=== PATIENT | female | born 1945 | race Caucasian/White ===

== ENCOUNTER 2021-11-28 15:18 | Inpatient (IN) | payer MEDICARE ==
[~2021-11-28] VITALS: Ht 154.9 cm; Wt 74.4 kg
[2021-11-28 19:30] VITALS: BP 131/74
[2021-11-28 21:31] VITALS: BP 134/78
[2021-11-28] MEDS: ACETAMINOPHEN 325 MG TABLET PO PRN (21:36)
[2021-11-28] MEDS: SENNA 187 MG TABLET PO SCH (21:37)
[2021-11-28] MEDS: ATORVASTATIN CALCIUM 20 MG TABLET PO SCH (21:37)
[2021-11-28] MEDS: METOPROLOL TARTRATE 50 MG TABLET PO SCH (21:37)
[2021-11-28] MEDS: DOCUSATE SODIUM 100 MG CAPSULE PO SCH (21:37)
[2021-11-28] MEDS: ETHYL ALCOHOL 62% ANTISEPTIC NASAL SANITIZER 0.6 ML AMPUL NASAL SCH (21:37)
[2021-11-28] MEDS: MELATONIN 3 MG TABLET PO PRN (21:46)
[2021-11-29] MEDS ORDERED: PNEUMOCOCCAL VACCINE POLYVALENT 0.5 ML VIAL [PPSV23] IM. ONE (00:45)
[2021-11-29 06:25] LABS: EOSINOPHILS % (AUTO) 5.7 % (1.0-6.0); HEMATOCRIT 29.1 % (36-46); HEMOGLOBIN 9.8 g/dL (12.0-16.0); LYMPHOCYTES # (AUTO) 2.1 K/uL (1.0-4.8); LYMPHOCYTES % (AUTO) 21.9 % (22.0-44.0); MEAN CORPUSCULAR HEMOGLOBIN 33.4 pg (26.0-34.0); MEAN CORPUSCULAR HGB CONC 33.9 G/dL (31.0-37.0); MEAN CORPUSCULAR VOLUME 99 fL (80-100); MONOCYTES # (AUTO) 1.1 K/uL (0.1-1.0); MONOCYTES % (AUTO) 11.7 % (2.0-9.0); NEUTROPHILS # (AUTO) 5.8 K/uL (1.8-7.7); NEUTROPHILS % (AUTO) 59.7 % (40.0-70.0); PLATELET COUNT (AUTO) 351 K/uL (150-450); RED BLOOD CELL COUNT(AUTO) 2.94 MIL/uL (4.00-5.20); RED CELL DISTRIBUTION WIDTH 13.8 % (11.5-14.5)
[2021-11-29] MEDS: LEVOTHYROXINE SODIUM 50 MCG TABLET PO SCH (06:26)
[2021-11-29 06:27] VITALS: BP 137/84
[2021-11-29 06:50] LABS: ALBUMIN 2.8 g/dL (3.4-5.0); BILIRUBIN,TOTAL 0.7 mg/dL (0.1-1.0); CALCIUM, TOTAL 8.6 mg/dL (8.8-10.5); CREATININE 1.03 mg/dL (0.60-1.30); POTASSIUM 4.7 mmol/L (3.5-5.1); TOTAL PROTEIN, SERUM 6.4 g/dL (6.4-8.2)
[2021-11-29 08:16] VITALS: BP 138/81
[2021-11-29] MEDS: DOCUSATE SODIUM 100 MG CAPSULE PO SCH ×2 (08:19→20:07)
[2021-11-29] MEDS: ASPIRIN 81 MG CHEWABLE TABLET PO SCH (08:19)
[2021-11-29] MEDS: FLUoxetine HCL 20 MG CAPSULE PO SCH (08:19)
[2021-11-29] MEDS: METOPROLOL TARTRATE 50 MG TABLET PO SCH ×2 (08:19→20:07)
[2021-11-29] MEDS: ETHYL ALCOHOL 62% ANTISEPTIC NASAL SANITIZER 0.6 ML AMPUL NASAL SCH ×2 (08:20→20:06)
[2021-11-29] MEDS: THIAMINE 100 MG TABLET PO SCH (08:20)
[2021-11-29] MEDS: FOLIC ACID 1 MG TABLET PO SCH (08:20)
[2021-11-29] MEDS: ACETAMINOPHEN 325 MG TABLET PO PRN (13:40)
[2021-11-29 16:05] VITALS: BP 131/78
[2021-11-29] MEDS: HEPARIN SODIUM,PORCINE 5,000 UNITS/ML VIAL SQ SCH ×2 (16:29→20:08)
[2021-11-29 20:00] VITALS: BP 138/80
[2021-11-29] MEDS: SENNA 187 MG TABLET PO SCH (20:07)
[2021-11-29] MEDS: ATORVASTATIN CALCIUM 20 MG TABLET PO SCH (20:07)
[2021-11-29] MEDS: MELATONIN 3 MG TABLET PO PRN (20:22)
[2021-11-30 03:54] VITALS: BP 140/84
[2021-11-30] MEDS: ACETAMINOPHEN 325 MG TABLET PO PRN ×3 (03:54→21:14)
[2021-11-30] MEDS: LEVOTHYROXINE SODIUM 50 MCG TABLET PO SCH (06:37)
[2021-11-30] MEDS: ETHYL ALCOHOL 62% ANTISEPTIC NASAL SANITIZER 0.6 ML AMPUL NASAL SCH ×2 (08:46→21:09)
[2021-11-30] MEDS: FOLIC ACID 1 MG TABLET PO SCH (08:47)
[2021-11-30] MEDS: ASPIRIN 81 MG CHEWABLE TABLET PO SCH (08:47)
[2021-11-30] MEDS: DOCUSATE SODIUM 100 MG CAPSULE PO SCH ×2 (08:47→21:09)
[2021-11-30] MEDS: METOPROLOL TARTRATE 50 MG TABLET PO SCH ×2 (08:47→21:09)
[2021-11-30] MEDS: THIAMINE 100 MG TABLET PO SCH (08:48)
[2021-11-30] MEDS: HEPARIN SODIUM,PORCINE 5,000 UNITS/ML VIAL SQ SCH ×3 (08:48→21:10)
[2021-11-30] MEDS: FLUoxetine HCL 20 MG CAPSULE PO SCH (08:48)
[2021-11-30 09:16] VITALS: BP 131/81
[2021-11-30 15:27] VITALS: BP 135/92
[2021-11-30] MEDS: ATORVASTATIN CALCIUM 20 MG TABLET PO SCH (21:09)
[2021-11-30] MEDS: SENNA 187 MG TABLET PO SCH (21:09)
[2021-11-30 21:14] VITALS: BP 149/79
[2021-11-30] MEDS: MELATONIN 3 MG TABLET PO PRN (21:14)
[2021-11-30 21:31] LABS: APPEARANCE,URINE CLEAR (CLEAR); BILIRUBIN,URINE NEGATIVE (NEGATIVE); GLUCOSE, URINE (UA) NEGATIVE (NEGATIVE); KETONES,URINE NEGATIVE (NEGATIVE); LEUKOCYTE ESTERASE ,URINE NEGATIVE (NEGATIVE); NITRATE,URINE NEGATIVE (NEGATIVE); OCCULT BLOOD,URINE NEGATIVE (NEGATIVE); PROTEIN,URINE NEGATIVE (NEGATIVE); SPECIFIC GRAVITIY, URINE 1.008 (1.003-1.030); UROBILINOGEN,URINE <=1.0 mg/dL (<=1.0)
[2021-11-30 21:47] LABS: BACTERIA,URINE None Seen /HPF (None Seen); RBC,URINE None Seen /HPF (0-2); SQUAMOUS EPITHELIAL CELL,UR Rare /LPF (None Seen); WBC,URINE None Seen /HPF (0-5)
[2021-12-01] MEDS: LEVOTHYROXINE SODIUM 50 MCG TABLET PO SCH (06:01)
[2021-12-01] MEDS: ASPIRIN 81 MG CHEWABLE TABLET PO SCH (07:36)
[2021-12-01] MEDS: ETHYL ALCOHOL 62% ANTISEPTIC NASAL SANITIZER 0.6 ML AMPUL NASAL SCH ×2 (07:36→21:28)
[2021-12-01] MEDS: THIAMINE 100 MG TABLET PO SCH (07:38)
[2021-12-01] MEDS: DOCUSATE SODIUM 100 MG CAPSULE PO SCH ×2 (07:38→21:28)
[2021-12-01] MEDS: HEPARIN SODIUM,PORCINE 5,000 UNITS/ML VIAL SQ SCH ×3 (07:38→21:29)
[2021-12-01] MEDS: METOPROLOL TARTRATE 50 MG TABLET PO SCH ×2 (07:39→21:28)
[2021-12-01] MEDS: FLUoxetine HCL 20 MG CAPSULE PO SCH (07:39)
[2021-12-01] MEDS: FOLIC ACID 1 MG TABLET PO SCH (07:39)
[2021-12-01] MEDS: ACETAMINOPHEN 325 MG TABLET PO PRN ×2 (07:40→16:10)
[2021-12-01 10:29] VITALS: BP 155/99
[2021-12-01 16:10] VITALS: BP 141/89
[2021-12-01 21:25] VITALS: BP 130/74
[2021-12-01] MEDS: SENNA 187 MG TABLET PO SCH (21:28)
[2021-12-01] MEDS: ATORVASTATIN CALCIUM 20 MG TABLET PO SCH (21:29)
[2021-12-01] MEDS: MELATONIN 3 MG TABLET PO PRN (21:38)
[2021-12-02] MEDS: LEVOTHYROXINE SODIUM 50 MCG TABLET PO SCH (05:15)
[2021-12-02 05:17] VITALS: BP 128/71
[2021-12-02] MEDS: ACETAMINOPHEN 325 MG TABLET PO PRN ×3 (05:17→20:37)
[2021-12-02 08:00] VITALS: BP 151/105
[2021-12-02] MEDS: ETHYL ALCOHOL 62% ANTISEPTIC NASAL SANITIZER 0.6 ML AMPUL NASAL SCH ×2 (08:34→20:36)
[2021-12-02] MEDS: HEPARIN SODIUM,PORCINE 5,000 UNITS/ML VIAL SQ SCH ×3 (08:35→20:39)
[2021-12-02] MEDS: FLUoxetine HCL 20 MG CAPSULE PO SCH (08:35)
[2021-12-02] MEDS: DOCUSATE SODIUM 100 MG CAPSULE PO SCH ×2 (08:35→20:36)
[2021-12-02] MEDS: ASPIRIN 81 MG CHEWABLE TABLET PO SCH (08:35)
[2021-12-02] MEDS: METOPROLOL TARTRATE 50 MG TABLET PO SCH ×2 (08:35→20:38)
[2021-12-02] MEDS: FOLIC ACID 1 MG TABLET PO SCH (08:35)
[2021-12-02] MEDS: THIAMINE 100 MG TABLET PO SCH (08:35)
[2021-12-02 10:51] VITALS: BP 146/87
[2021-12-02] MEDS: BACLOFEN 10 MG TABLET PO SCH ×2 (15:58→20:39)
[2021-12-02 16:05] VITALS: BP 137/84
[2021-12-02 20:35] VITALS: BP 140/81
[2021-12-02] MEDS: MELATONIN 3 MG TABLET PO PRN (20:36)
[2021-12-02] MEDS: SENNA 187 MG TABLET PO SCH (20:38)
[2021-12-02] MEDS: ATORVASTATIN CALCIUM 20 MG TABLET PO SCH (20:38)
[2021-12-03 02:34] VITALS: BP 126/84
[2021-12-03] MEDS: ACETAMINOPHEN 325 MG TABLET PO PRN (02:34)
[2021-12-03] MEDS: LEVOTHYROXINE SODIUM 50 MCG TABLET PO SCH (06:15)
[2021-12-03 08:30] VITALS: BP 143/82
[2021-12-03] MEDS: HEPARIN SODIUM,PORCINE 5,000 UNITS/ML VIAL SQ SCH ×3 (08:41→21:56)
[2021-12-03] MEDS: ASPIRIN 81 MG CHEWABLE TABLET PO SCH (08:42)
[2021-12-03] MEDS: BACLOFEN 10 MG TABLET PO SCH ×3 (08:42→21:48)
[2021-12-03] MEDS: DOCUSATE SODIUM 100 MG CAPSULE PO SCH ×2 (08:42→21:47)
[2021-12-03] MEDS: FOLIC ACID 1 MG TABLET PO SCH (08:42)
[2021-12-03] MEDS: METOPROLOL TARTRATE 50 MG TABLET PO SCH ×2 (08:42→21:47)
[2021-12-03] MEDS: ETHYL ALCOHOL 62% ANTISEPTIC NASAL SANITIZER 0.6 ML AMPUL NASAL SCH ×2 (08:43→21:47)
[2021-12-03] MEDS: FLUoxetine HCL 20 MG CAPSULE PO SCH (08:46)
[2021-12-03] MEDS: THIAMINE 100 MG TABLET PO SCH (08:46)
[2021-12-03 16:22] VITALS: BP 141/75
[2021-12-03 21:30] VITALS: BP 149/101
[2021-12-03] MEDS: SENNA 187 MG TABLET PO SCH (21:47)
[2021-12-03] MEDS: ATORVASTATIN CALCIUM 20 MG TABLET PO SCH (21:47)
[2021-12-03] MEDS: TAMSULOSIN HCL 0.4 MG CAPSULE PO SCH (21:48)
[2021-12-03] MEDS: MELATONIN 3 MG TABLET PO PRN (21:48)
[2021-12-04] MEDS: LEVOTHYROXINE SODIUM 50 MCG TABLET PO SCH (05:43)
[2021-12-04 06:06] VITALS: BP 153/89
[2021-12-04] MEDS: ACETAMINOPHEN 325 MG TABLET PO PRN ×3 (06:41→22:31)
[2021-12-04] MEDS: DOCUSATE SODIUM 100 MG CAPSULE PO SCH ×2 (08:30→20:15)
[2021-12-04] MEDS: THIAMINE 100 MG TABLET PO SCH (08:30)
[2021-12-04] MEDS: ASPIRIN 81 MG CHEWABLE TABLET PO SCH (08:30)
[2021-12-04] MEDS: FLUoxetine HCL 20 MG CAPSULE PO SCH (08:30)
[2021-12-04] MEDS: METOPROLOL TARTRATE 50 MG TABLET PO SCH ×2 (08:30→20:15)
[2021-12-04] MEDS: BACLOFEN 10 MG TABLET PO SCH ×3 (08:31→20:16)
[2021-12-04] MEDS: FOLIC ACID 1 MG TABLET PO SCH (08:31)
[2021-12-04] MEDS: HEPARIN SODIUM,PORCINE 5,000 UNITS/ML VIAL SQ SCH ×3 (08:31→20:15)
[2021-12-04] MEDS: ETHYL ALCOHOL 62% ANTISEPTIC NASAL SANITIZER 0.6 ML AMPUL NASAL SCH ×2 (08:48→20:16)
[2021-12-04 09:00] VITALS: BP 144/108
[2021-12-04 11:20] VITALS: BP 139/79
[2021-12-04 16:05] VITALS: BP 133/78
[2021-12-04 20:05] VITALS: BP 140/89
[2021-12-04] MEDS: SENNA 187 MG TABLET PO SCH (20:16)
[2021-12-04] MEDS: TAMSULOSIN HCL 0.4 MG CAPSULE PO SCH (20:16)
[2021-12-04] MEDS: ATORVASTATIN CALCIUM 20 MG TABLET PO SCH (20:16)
[2021-12-04] MEDS: MELATONIN 3 MG TABLET PO PRN (20:16)
[2021-12-04 23:31] VITALS: BP 140/93
[2021-12-05] MEDS: LEVOTHYROXINE SODIUM 50 MCG TABLET PO SCH (06:03)
[2021-12-05] MEDS: ACETAMINOPHEN 325 MG TABLET PO PRN ×2 (06:34→11:13)
[2021-12-05] MEDS: ETHYL ALCOHOL 62% ANTISEPTIC NASAL SANITIZER 0.6 ML AMPUL NASAL SCH ×2 (08:06→19:54)
[2021-12-05] MEDS: DOCUSATE SODIUM 100 MG CAPSULE PO SCH ×2 (08:07→19:55)
[2021-12-05] MEDS: FOLIC ACID 1 MG TABLET PO SCH (08:07)
[2021-12-05] MEDS: ASPIRIN 81 MG CHEWABLE TABLET PO SCH (08:07)
[2021-12-05] MEDS: METOPROLOL TARTRATE 50 MG TABLET PO SCH ×2 (08:08→19:56)
[2021-12-05] MEDS: BACLOFEN 10 MG TABLET PO SCH ×3 (08:08→19:57)
[2021-12-05] MEDS: FLUoxetine HCL 20 MG CAPSULE PO SCH (08:09)
[2021-12-05] MEDS: HEPARIN SODIUM,PORCINE 5,000 UNITS/ML VIAL SQ SCH ×2 (08:09→16:11)
[2021-12-05] MEDS: MULTIVITAMINS WITH MINERALS, THERAPEUTIC TABLET PO SCH (08:09)
[2021-12-05] MEDS: AmLODIPine BESYLATE 2.5 MG TABLET PO SCH (08:09)
[2021-12-05] MEDS: THIAMINE 100 MG TABLET PO SCH (08:09)
[2021-12-05 09:00] VITALS: BP 149/93
[2021-12-05 16:30] VITALS: BP 134/85
[2021-12-05 19:55] VITALS: BP 128/84
[2021-12-05] MEDS: TAMSULOSIN HCL 0.4 MG CAPSULE PO SCH (19:55)
[2021-12-05] MEDS: ATORVASTATIN CALCIUM 20 MG TABLET PO SCH (19:56)
[2021-12-05] MEDS: MIRTAZAPINE 15 MG TABLET PO SCH (19:56)
[2021-12-05] MEDS: APIXABAN 5 MG TABLET PO SCH (19:56)
[2021-12-05] MEDS: SENNA 187 MG TABLET PO SCH (19:56)
[2021-12-06 05:51] VITALS: BP 148/83
[2021-12-06] MEDS: LEVOTHYROXINE SODIUM 50 MCG TABLET PO SCH (06:05)
[2021-12-06 07:15] LABS: CREATININE 1.09 mg/dL (0.60-1.30); POTASSIUM 4.2 mmol/L (3.5-5.1)
[2021-12-06] MEDS: DOCUSATE SODIUM 100 MG CAPSULE PO SCH ×2 (09:15→20:46)
[2021-12-06] MEDS: ASPIRIN 81 MG CHEWABLE TABLET PO SCH (09:15)
[2021-12-06] MEDS: ETHYL ALCOHOL 62% ANTISEPTIC NASAL SANITIZER 0.6 ML AMPUL NASAL SCH ×2 (09:15→20:47)
[2021-12-06] MEDS: APIXABAN 5 MG TABLET PO SCH ×2 (09:16→20:46)
[2021-12-06] MEDS: BACLOFEN 10 MG TABLET PO SCH ×3 (09:16→20:47)
[2021-12-06] MEDS: FOLIC ACID 1 MG TABLET PO SCH (09:16)
[2021-12-06] MEDS: THIAMINE 100 MG TABLET PO SCH (09:17)
[2021-12-06] MEDS: MULTIVITAMINS WITH MINERALS, THERAPEUTIC TABLET PO SCH (09:17)
[2021-12-06] MEDS: AmLODIPine BESYLATE 2.5 MG TABLET PO SCH (09:17)
[2021-12-06] MEDS: METOPROLOL TARTRATE 50 MG TABLET PO SCH ×2 (09:17→20:46)
[2021-12-06] MEDS: FLUoxetine HCL 20 MG CAPSULE PO SCH (09:17)
[2021-12-06 11:02] VITALS: BP 152/92
[2021-12-06 16:02] VITALS: BP 129/71
[2021-12-06] MEDS: ACETAMINOPHEN 325 MG TABLET PO PRN (17:55)
[2021-12-06 20:30] VITALS: BP 133/70
[2021-12-06] MEDS: MIRTAZAPINE 15 MG TABLET PO SCH (20:46)
[2021-12-06] MEDS: SENNA 187 MG TABLET PO SCH (20:46)
[2021-12-06] MEDS: TAMSULOSIN HCL 0.4 MG CAPSULE PO SCH (20:46)
[2021-12-06] MEDS: ATORVASTATIN CALCIUM 20 MG TABLET PO SCH (20:49)
[2021-12-07] MEDS: LEVOTHYROXINE SODIUM 50 MCG TABLET PO SCH (05:44)
[2021-12-07 06:06] VITALS: BP 134/95
[2021-12-07 08:05] LABS: APPEARANCE,URINE CLEAR (CLEAR); BILIRUBIN,URINE NEGATIVE (NEGATIVE); GLUCOSE, URINE (UA) NEGATIVE (NEGATIVE); KETONES,URINE NEGATIVE (NEGATIVE); LEUKOCYTE ESTERASE ,URINE NEGATIVE (NEGATIVE); NITRATE,URINE NEGATIVE (NEGATIVE); OCCULT BLOOD,URINE NEGATIVE (NEGATIVE); PH,URINE 5.5 (5.0-8.0); PROTEIN,URINE NEGATIVE (NEGATIVE); SPECIFIC GRAVITIY, URINE 1.006 (1.003-1.030); UROBILINOGEN,URINE <=1.0 mg/dL (<=1.0)
[2021-12-07 08:10] LABS: BACTERIA,URINE None Seen /HPF (None Seen); RBC,URINE None Seen /HPF (0-2); SQUAMOUS EPITHELIAL CELL,UR Few /LPF (None Seen); WBC,URINE None Seen /HPF (0-5)
[2021-12-07] MEDS: ETHYL ALCOHOL 62% ANTISEPTIC NASAL SANITIZER 0.6 ML AMPUL NASAL SCH ×2 (09:07→20:47)
[2021-12-07] MEDS: ASPIRIN 81 MG CHEWABLE TABLET PO SCH (09:08)
[2021-12-07] MEDS: AmLODIPine BESYLATE 5 MG TABLET PO SCH (09:08)
[2021-12-07] MEDS: DOCUSATE SODIUM 250 MG CAPSULE PO SCH ×2 (09:08→20:47)
[2021-12-07] MEDS: APIXABAN 5 MG TABLET PO SCH ×2 (09:08→20:48)
[2021-12-07] MEDS: FOLIC ACID 1 MG TABLET PO SCH (09:09)
[2021-12-07] MEDS: BACLOFEN 10 MG TABLET PO SCH ×3 (09:09→20:48)
[2021-12-07] MEDS: MULTIVITAMINS WITH MINERALS, THERAPEUTIC TABLET PO SCH (09:09)
[2021-12-07] MEDS: METOPROLOL TARTRATE 50 MG TABLET PO SCH ×2 (09:09→20:48)
[2021-12-07] MEDS: FLUoxetine HCL 20 MG CAPSULE PO SCH (09:09)
[2021-12-07] MEDS: THIAMINE 100 MG TABLET PO SCH (09:10)
[2021-12-07 09:37] VITALS: BP 121/65
[2021-12-07] MEDS: ACETAMINOPHEN 325 MG TABLET PO PRN ×2 (12:20→18:05)
[2021-12-07 16:05] VITALS: BP 117/72
[2021-12-07] MEDS: SENNA 187 MG TABLET PO SCH (20:47)
[2021-12-07] MEDS: ATORVASTATIN CALCIUM 20 MG TABLET PO SCH (20:48)
[2021-12-07] MEDS: MIRTAZAPINE 15 MG TABLET PO SCH (20:49)
[2021-12-07] MEDS: TAMSULOSIN HCL 0.4 MG CAPSULE PO SCH (20:50)
[2021-12-08] MEDS: LEVOTHYROXINE SODIUM 50 MCG TABLET PO SCH (05:41)
[2021-12-08 05:45] VITALS: BP 101/54
[2021-12-08] MEDS: ASPIRIN 81 MG CHEWABLE TABLET PO SCH (08:16)
[2021-12-08] MEDS: ETHYL ALCOHOL 62% ANTISEPTIC NASAL SANITIZER 0.6 ML AMPUL NASAL SCH ×2 (08:16→20:33)
[2021-12-08] MEDS: APIXABAN 5 MG TABLET PO SCH ×2 (08:17→20:34)
[2021-12-08] MEDS: TAMSULOSIN HCL 0.4 MG CAPSULE PO SCH ×2 (08:18→20:34)
[2021-12-08] MEDS: FOLIC ACID 1 MG TABLET PO SCH (08:18)
[2021-12-08] MEDS: MULTIVITAMINS WITH MINERALS, THERAPEUTIC TABLET PO SCH (08:19)
[2021-12-08] MEDS: METOPROLOL TARTRATE 50 MG TABLET PO SCH ×2 (08:19→20:34)
[2021-12-08] MEDS: THIAMINE 100 MG TABLET PO SCH (08:19)
[2021-12-08] MEDS: FLUoxetine HCL 20 MG CAPSULE PO SCH (08:19)
[2021-12-08] MEDS: AmLODIPine BESYLATE 5 MG TABLET PO SCH (08:19)
[2021-12-08] MEDS: BACLOFEN 10 MG TABLET PO SCH ×3 (08:19→20:34)
[2021-12-08] MEDS: DOCUSATE SODIUM 250 MG CAPSULE PO SCH ×2 (08:20→20:33)
[2021-12-08 09:21] VITALS: BP 114/72
[2021-12-08] MEDS: ACETAMINOPHEN 325 MG TABLET PO PRN (12:05)
[2021-12-08 16:02] VITALS: BP 122/63
[2021-12-08] MEDS: ATORVASTATIN CALCIUM 20 MG TABLET PO SCH (20:34)
[2021-12-08] MEDS: MIRTAZAPINE 15 MG TABLET PO SCH (20:34)
[2021-12-08] MEDS: SENNA 187 MG TABLET PO SCH (20:35)
[2021-12-09 05:31] VITALS: BP 131/76
[2021-12-09] MEDS: LEVOTHYROXINE SODIUM 50 MCG TABLET PO SCH (05:36)
[2021-12-09 09:00] VITALS: BP 132/64
[2021-12-09] MEDS: ETHYL ALCOHOL 62% ANTISEPTIC NASAL SANITIZER 0.6 ML AMPUL NASAL SCH ×2 (09:05→20:13)
[2021-12-09] MEDS: APIXABAN 5 MG TABLET PO SCH ×2 (09:06→20:14)
[2021-12-09] MEDS: FOLIC ACID 1 MG TABLET PO SCH (09:06)
[2021-12-09] MEDS: FLUoxetine HCL 20 MG CAPSULE PO SCH (09:06)
[2021-12-09] MEDS: THIAMINE 100 MG TABLET PO SCH (09:06)
[2021-12-09] MEDS: BACLOFEN 10 MG TABLET PO SCH ×3 (09:06→20:14)
[2021-12-09] MEDS: AmLODIPine BESYLATE 5 MG TABLET PO SCH (09:07)
[2021-12-09] MEDS: TAMSULOSIN HCL 0.4 MG CAPSULE PO SCH ×2 (09:07→20:14)
[2021-12-09] MEDS: DOCUSATE SODIUM 250 MG CAPSULE PO SCH ×2 (09:07→20:13)
[2021-12-09] MEDS: MULTIVITAMINS WITH MINERALS, THERAPEUTIC TABLET PO SCH (09:07)
[2021-12-09] MEDS: METOPROLOL TARTRATE 50 MG TABLET PO SCH ×2 (09:07→20:50)
[2021-12-09] MEDS: ASPIRIN 81 MG CHEWABLE TABLET PO SCH (09:07)
[2021-12-09] MEDS: ACETAMINOPHEN 325 MG TABLET PO PRN ×2 (10:55→19:33)
[2021-12-09 16:03] VITALS: BP 112/65
[2021-12-09 20:10] VITALS: BP 99/66
[2021-12-09] MEDS: ATORVASTATIN CALCIUM 20 MG TABLET PO SCH (20:14)
[2021-12-09] MEDS: SENNA 187 MG TABLET PO SCH (20:14)
[2021-12-09] MEDS: MIRTAZAPINE 15 MG TABLET PO SCH (20:14)
[2021-12-09 20:50] VITALS: BP 123/68
[2021-12-10 01:30] VITALS: BP 113/76
[2021-12-10] MEDS: LEVOTHYROXINE SODIUM 50 MCG TABLET PO SCH (05:49)
[2021-12-10] MEDS: ASPIRIN 81 MG CHEWABLE TABLET PO SCH (08:29)
[2021-12-10] MEDS: DOCUSATE SODIUM 250 MG CAPSULE PO SCH ×2 (08:29→20:05)
[2021-12-10] MEDS: TAMSULOSIN HCL 0.4 MG CAPSULE PO SCH ×2 (08:29→20:06)
[2021-12-10] MEDS: APIXABAN 5 MG TABLET PO SCH ×2 (08:29→20:06)
[2021-12-10] MEDS: ETHYL ALCOHOL 62% ANTISEPTIC NASAL SANITIZER 0.6 ML AMPUL NASAL SCH ×2 (08:29→20:05)
[2021-12-10] MEDS: THIAMINE 100 MG TABLET PO SCH (08:30)
[2021-12-10] MEDS: METOPROLOL TARTRATE 50 MG TABLET PO SCH ×2 (08:30→20:06)
[2021-12-10] MEDS: BACLOFEN 10 MG TABLET PO SCH ×3 (08:30→20:06)
[2021-12-10] MEDS: FOLIC ACID 1 MG TABLET PO SCH (08:30)
[2021-12-10] MEDS: FLUoxetine HCL 20 MG CAPSULE PO SCH (08:31)
[2021-12-10] MEDS: AmLODIPine BESYLATE 5 MG TABLET PO SCH (08:31)
[2021-12-10] MEDS: MULTIVITAMINS WITH MINERALS, THERAPEUTIC TABLET PO SCH (08:31)
[2021-12-10 09:37] VITALS: BP 114/81
[2021-12-10 15:05] VITALS: BP 97/57
[2021-12-10 17:39] VITALS: BP 116/63
[2021-12-10 19:56] VITALS: BP 122/61
[2021-12-10] MEDS: ATORVASTATIN CALCIUM 20 MG TABLET PO SCH (20:06)
[2021-12-10] MEDS: MIRTAZAPINE 15 MG TABLET PO SCH (20:06)
[2021-12-10] MEDS: SENNA 187 MG TABLET PO SCH (20:10)
[2021-12-11 00:09] VITALS: BP 123/86
[2021-12-11] MEDS: LEVOTHYROXINE SODIUM 50 MCG TABLET PO SCH (05:51)
[2021-12-11] MEDS: APIXABAN 5 MG TABLET PO SCH ×2 (08:59→20:35)
[2021-12-11] MEDS: MULTIVITAMINS WITH MINERALS, THERAPEUTIC TABLET PO SCH (08:59)
[2021-12-11] MEDS: ETHYL ALCOHOL 62% ANTISEPTIC NASAL SANITIZER 0.6 ML AMPUL NASAL SCH ×2 (08:59→20:33)
[2021-12-11] MEDS: ASPIRIN 81 MG CHEWABLE TABLET PO SCH (08:59)
[2021-12-11] MEDS: THIAMINE 100 MG TABLET PO SCH (08:59)
[2021-12-11] MEDS: BACLOFEN 10 MG TABLET PO SCH ×3 (08:59→20:35)
[2021-12-11] MEDS: AmLODIPine BESYLATE 5 MG TABLET PO SCH (09:00)
[2021-12-11] MEDS: DOCUSATE SODIUM 250 MG CAPSULE PO SCH ×2 (09:00→20:44)
[2021-12-11] MEDS: FOLIC ACID 1 MG TABLET PO SCH (09:00)
[2021-12-11] MEDS: METOPROLOL TARTRATE 50 MG TABLET PO SCH ×2 (09:00→20:35)
[2021-12-11] MEDS: FLUoxetine HCL 20 MG CAPSULE PO SCH (09:00)
[2021-12-11] MEDS: TAMSULOSIN HCL 0.4 MG CAPSULE PO SCH ×2 (09:00→20:38)
[2021-12-11 10:14] VITALS: BP 110/67
[2021-12-11 15:36] VITALS: BP 126/55
[2021-12-11 20:20] VITALS: BP 118/69
[2021-12-11] MEDS: ATORVASTATIN CALCIUM 20 MG TABLET PO SCH (20:35)
[2021-12-11] MEDS: MIRTAZAPINE 15 MG TABLET PO SCH (20:35)
[2021-12-11] MEDS: SENNA 187 MG TABLET PO SCH (20:45)
[2021-12-12 00:36] VITALS: BP 109/64
[2021-12-12] MEDS: LEVOTHYROXINE SODIUM 50 MCG TABLET PO SCH (05:42)
[2021-12-12] MEDS: APIXABAN 5 MG TABLET PO SCH ×2 (08:21→20:27)
[2021-12-12] MEDS: ETHYL ALCOHOL 62% ANTISEPTIC NASAL SANITIZER 0.6 ML AMPUL NASAL SCH ×2 (08:21→20:28)
[2021-12-12] MEDS: ASPIRIN 81 MG CHEWABLE TABLET PO SCH (08:21)
[2021-12-12] MEDS: TAMSULOSIN HCL 0.4 MG CAPSULE PO SCH ×2 (08:21→20:26)
[2021-12-12] MEDS: FOLIC ACID 1 MG TABLET PO SCH (08:21)
[2021-12-12] MEDS: FLUoxetine HCL 20 MG CAPSULE PO SCH (08:22)
[2021-12-12] MEDS: BACLOFEN 10 MG TABLET PO SCH ×3 (08:22→20:27)
[2021-12-12] MEDS: METOPROLOL TARTRATE 50 MG TABLET PO SCH ×2 (08:22→20:26)
[2021-12-12] MEDS: THIAMINE 100 MG TABLET PO SCH (08:22)
[2021-12-12] MEDS: MULTIVITAMINS WITH MINERALS, THERAPEUTIC TABLET PO SCH (08:22)
[2021-12-12] MEDS: AmLODIPine BESYLATE 5 MG TABLET PO SCH (08:22)
[2021-12-12] MEDS: DOCUSATE SODIUM 250 MG CAPSULE PO SCH ×2 (08:23→21:00)
[2021-12-12 09:24] VITALS: BP 123/85
[2021-12-12] MEDS: ACETAMINOPHEN 325 MG TABLET PO PRN (10:47)
[2021-12-12 16:07] VITALS: BP 118/68
[2021-12-12 20:25] VITALS: BP 124/60
[2021-12-12] MEDS: ATORVASTATIN CALCIUM 20 MG TABLET PO SCH (20:27)
[2021-12-12] MEDS: MIRTAZAPINE 15 MG TABLET PO SCH (20:27)
[2021-12-12] MEDS: SENNA 187 MG TABLET PO SCH (21:00)
[2021-12-13 00:03] VITALS: BP 104/70
[2021-12-13] MEDS: LEVOTHYROXINE SODIUM 50 MCG TABLET PO SCH (06:01)
[2021-12-13 08:09] VITALS: BP 133/86
[2021-12-13] MEDS: METOPROLOL TARTRATE 50 MG TABLET PO SCH ×2 (08:13→20:37)
[2021-12-13] MEDS: ETHYL ALCOHOL 62% ANTISEPTIC NASAL SANITIZER 0.6 ML AMPUL NASAL SCH ×2 (08:13→20:37)
[2021-12-13] MEDS: APIXABAN 5 MG TABLET PO SCH ×2 (08:13→20:38)
[2021-12-13] MEDS: FLUoxetine HCL 20 MG CAPSULE PO SCH (08:14)
[2021-12-13] MEDS: FOLIC ACID 1 MG TABLET PO SCH (08:14)
[2021-12-13] MEDS: ASPIRIN 81 MG CHEWABLE TABLET PO SCH (08:14)
[2021-12-13] MEDS: TAMSULOSIN HCL 0.4 MG CAPSULE PO SCH ×2 (08:14→20:38)
[2021-12-13] MEDS: BACLOFEN 10 MG TABLET PO SCH ×3 (08:14→20:37)
[2021-12-13] MEDS: THIAMINE 100 MG TABLET PO SCH (08:14)
[2021-12-13] MEDS: MULTIVITAMINS WITH MINERALS, THERAPEUTIC TABLET PO SCH (08:14)
[2021-12-13] MEDS: AmLODIPine BESYLATE 5 MG TABLET PO SCH (08:15)
[2021-12-13] MEDS: DOCUSATE SODIUM 250 MG CAPSULE PO SCH ×2 (08:19→20:47)
[2021-12-13 16:05] VITALS: BP 99/64
[2021-12-13 20:30] VITALS: BP 106/57
[2021-12-13] MEDS: ATORVASTATIN CALCIUM 20 MG TABLET PO SCH (20:37)
[2021-12-13] MEDS: MIRTAZAPINE 15 MG TABLET PO SCH (20:38)
[2021-12-13] MEDS: SENNA 187 MG TABLET PO SCH (20:47)
[2021-12-14 00:15] VITALS: BP 117/69
[2021-12-14] MEDS: LEVOTHYROXINE SODIUM 50 MCG TABLET PO SCH (05:56)
[2021-12-14] MEDS: TAMSULOSIN HCL 0.4 MG CAPSULE PO SCH ×2 (08:06→20:25)
[2021-12-14] MEDS: THIAMINE 100 MG TABLET PO SCH (08:06)
[2021-12-14] MEDS: ETHYL ALCOHOL 62% ANTISEPTIC NASAL SANITIZER 0.6 ML AMPUL NASAL SCH ×2 (08:06→20:25)
[2021-12-14] MEDS: BACLOFEN 10 MG TABLET PO SCH ×3 (08:06→20:25)
[2021-12-14] MEDS: ASPIRIN 81 MG CHEWABLE TABLET PO SCH (08:06)
[2021-12-14] MEDS: FLUoxetine HCL 20 MG CAPSULE PO SCH (08:07)
[2021-12-14] MEDS: DOCUSATE SODIUM 250 MG CAPSULE PO SCH ×2 (08:07→20:25)
[2021-12-14] MEDS: FOLIC ACID 1 MG TABLET PO SCH (08:07)
[2021-12-14] MEDS: MULTIVITAMINS WITH MINERALS, THERAPEUTIC TABLET PO SCH (08:07)
[2021-12-14] MEDS: APIXABAN 5 MG TABLET PO SCH ×2 (08:07→20:26)
[2021-12-14] MEDS: METOPROLOL TARTRATE 50 MG TABLET PO SCH ×2 (08:07→20:26)
[2021-12-14] MEDS: AmLODIPine BESYLATE 5 MG TABLET PO SCH (08:25)
[2021-12-14 09:27] VITALS: BP 109/85
[2021-12-14 16:35] VITALS: BP 108/64
[2021-12-14 20:25] VITALS: BP 125/78
[2021-12-14] MEDS: SENNA 187 MG TABLET PO SCH (20:26)
[2021-12-14] MEDS: ATORVASTATIN CALCIUM 20 MG TABLET PO SCH (20:26)
[2021-12-14] MEDS: MIRTAZAPINE 15 MG TABLET PO SCH (20:26)
[2021-12-15 00:40] VITALS: BP 117/68
[2021-12-15] MEDS: LEVOTHYROXINE SODIUM 50 MCG TABLET PO SCH (05:32)
[2021-12-15 08:00] VITALS: BP 98/52
[2021-12-15] MEDS: ETHYL ALCOHOL 62% ANTISEPTIC NASAL SANITIZER 0.6 ML AMPUL NASAL SCH ×2 (08:59→20:38)
[2021-12-15 09:00] VITALS: BP 99/61
[2021-12-15] MEDS: METOPROLOL TARTRATE 50 MG TABLET PO SCH ×2 (09:00→20:39)
[2021-12-15] MEDS: FOLIC ACID 1 MG TABLET PO SCH (09:00)
[2021-12-15] MEDS: AmLODIPine BESYLATE 5 MG TABLET PO SCH (09:00)
[2021-12-15] MEDS: ASPIRIN 81 MG CHEWABLE TABLET PO SCH (09:01)
[2021-12-15] MEDS: MULTIVITAMINS WITH MINERALS, THERAPEUTIC TABLET PO SCH (09:01)
[2021-12-15] MEDS: TAMSULOSIN HCL 0.4 MG CAPSULE PO SCH ×2 (09:01→20:39)
[2021-12-15] MEDS: FLUoxetine HCL 20 MG CAPSULE PO SCH (09:01)
[2021-12-15] MEDS: BACLOFEN 10 MG TABLET PO SCH ×3 (09:01→20:38)
[2021-12-15] MEDS: THIAMINE 100 MG TABLET PO SCH (09:01)
[2021-12-15] MEDS: DOCUSATE SODIUM 250 MG CAPSULE PO SCH ×2 (09:02→20:39)
[2021-12-15] MEDS: APIXABAN 5 MG TABLET PO SCH ×2 (09:02→20:39)
[2021-12-15 16:34] VITALS: BP 117/74
[2021-12-15 20:20] VITALS: BP 119/69
[2021-12-15] MEDS: SENNA 187 MG TABLET PO SCH (20:38)
[2021-12-15] MEDS: MIRTAZAPINE 15 MG TABLET PO SCH (20:39)
[2021-12-15] MEDS: ATORVASTATIN CALCIUM 20 MG TABLET PO SCH (20:39)
[2021-12-15 23:30] VITALS: BP 109/59
[2021-12-16] MEDS: LEVOTHYROXINE SODIUM 50 MCG TABLET PO SCH (05:34)
[2021-12-16] MEDS: FLUoxetine HCL 20 MG CAPSULE PO SCH (08:03)
[2021-12-16] MEDS: FOLIC ACID 1 MG TABLET PO SCH (08:03)
[2021-12-16] MEDS: METOPROLOL TARTRATE 50 MG TABLET PO SCH ×2 (08:03→20:51)
[2021-12-16] MEDS: APIXABAN 5 MG TABLET PO SCH ×2 (08:03→20:52)
[2021-12-16] MEDS: ASPIRIN 81 MG CHEWABLE TABLET PO SCH (08:03)
[2021-12-16] MEDS: TAMSULOSIN HCL 0.4 MG CAPSULE PO SCH ×2 (08:03→20:52)
[2021-12-16] MEDS: THIAMINE 100 MG TABLET PO SCH (08:03)
[2021-12-16] MEDS: BACLOFEN 10 MG TABLET PO SCH ×3 (08:04→20:52)
[2021-12-16] MEDS: DOCUSATE SODIUM 250 MG CAPSULE PO SCH ×2 (08:04→20:51)
[2021-12-16] MEDS: MULTIVITAMINS WITH MINERALS, THERAPEUTIC TABLET PO SCH (08:04)
[2021-12-16] MEDS: AmLODIPine BESYLATE 5 MG TABLET PO SCH (08:04)
[2021-12-16] MEDS: ETHYL ALCOHOL 62% ANTISEPTIC NASAL SANITIZER 0.6 ML AMPUL NASAL SCH ×2 (08:04→20:50)
[2021-12-16 09:37] VITALS: BP 120/74
[2021-12-16] MEDS: ACETAMINOPHEN 325 MG TABLET PO PRN (10:05)
[2021-12-16 16:30] VITALS: BP 126/71
[2021-12-16] MEDS ORDERED: ALBUTEROL SULFATE HFA 90 MCG/PUFF 8 GM INHALER IH PRN (18:00)
[2021-12-16 20:45] VITALS: BP 109/71
[2021-12-16] MEDS: ATORVASTATIN CALCIUM 20 MG TABLET PO SCH (20:53)
[2021-12-16] MEDS: MIRTAZAPINE 15 MG TABLET PO SCH (20:54)
[2021-12-16] MEDS: SENNA 187 MG TABLET PO SCH (20:54)
[2021-12-16] MEDS ORDERED: METOPROLOL TARTRATE 50 MG TABLET PO SCH (21:00)
[2021-12-16] MEDS ORDERED: MELATONIN 5 MG TABLET PO SCH (21:00)
[2021-12-16] MEDS ORDERED: ATORVASTATIN CALCIUM 40 MG TABLET PO SCH (21:00)
[2021-12-16] MEDS ORDERED: APIXABAN 5 MG TABLET PO SCH (21:00)
[2021-12-17 05:00] VITALS: BP 121/74
[2021-12-17] MEDS: LEVOTHYROXINE SODIUM 50 MCG TABLET PO SCH (05:56)
[2021-12-17 09:00] VITALS: BP 105/78
[2021-12-17] MEDS ORDERED: ROFLUMILAST 500 MCG TABLET PO SCH (09:00)
[2021-12-17] MEDS ORDERED: SERTRALINE HCL 100 MG TABLET PO SCH (09:00)
[2021-12-17] MEDS ORDERED: FLUTICASONE PROPIONATE 50 MCG/SPRAY 16 GM NASAL SPRAY NASAL SCH (09:00)
[2021-12-17] MEDS: DOCUSATE SODIUM 250 MG CAPSULE PO SCH ×2 (09:00→21:00)
[2021-12-17] MEDS ORDERED: LETROZOLE 2.5 MG TABLET PO SCH (09:00)
[2021-12-17] MEDS: ETHYL ALCOHOL 62% ANTISEPTIC NASAL SANITIZER 0.6 ML AMPUL NASAL SCH ×2 (09:02→21:01)
[2021-12-17] MEDS: APIXABAN 5 MG TABLET PO SCH ×2 (09:03→21:02)
[2021-12-17] MEDS: THIAMINE 100 MG TABLET PO SCH (09:03)
[2021-12-17] MEDS: FLUoxetine HCL 20 MG CAPSULE PO SCH (09:03)
[2021-12-17] MEDS: METOPROLOL TARTRATE 50 MG TABLET PO SCH ×2 (09:03→20:59)
[2021-12-17] MEDS: TAMSULOSIN HCL 0.4 MG CAPSULE PO SCH ×2 (09:03→21:02)
[2021-12-17] MEDS: MULTIVITAMINS WITH MINERALS, THERAPEUTIC TABLET PO SCH (09:03)
[2021-12-17] MEDS: FOLIC ACID 1 MG TABLET PO SCH (09:03)
[2021-12-17] MEDS: ASPIRIN 81 MG CHEWABLE TABLET PO SCH (09:03)
[2021-12-17] MEDS: BACLOFEN 10 MG TABLET PO SCH ×3 (09:04→21:01)
[2021-12-17] MEDS: AmLODIPine BESYLATE 2.5 MG TABLET PO SCH (09:39)
[2021-12-17 16:16] VITALS: BP 122/72
[2021-12-17] MEDS: SENNA 187 MG TABLET PO SCH (21:00)
[2021-12-17 21:01] VITALS: BP 124/63
[2021-12-17] MEDS: ATORVASTATIN CALCIUM 20 MG TABLET PO SCH (21:02)
[2021-12-17] MEDS: MIRTAZAPINE 15 MG TABLET PO SCH (21:07)
[2021-12-18] VITALS: BP 121/73
[2021-12-18 03:10] LABS: APPEARANCE,URINE HAZY (CLEAR); BILIRUBIN,URINE NEGATIVE (NEGATIVE); GLUCOSE, URINE (UA) NEGATIVE (NEGATIVE); KETONES,URINE NEGATIVE (NEGATIVE); LEUKOCYTE ESTERASE ,URINE LARGE (NEGATIVE); NITRATE,URINE POSITIVE (NEGATIVE); OCCULT BLOOD,URINE NEGATIVE (NEGATIVE); PROTEIN,URINE NEGATIVE (NEGATIVE); SPECIFIC GRAVITIY, URINE 1.006 (1.003-1.030); UROBILINOGEN,URINE <=1.0 mg/dL (<=1.0)
[2021-12-18 03:44] LABS: BACTERIA,URINE Moderate /HPF (None Seen); RBC,URINE 0-2 /HPF (0-2); SQUAMOUS EPITHELIAL CELL,UR Few /LPF (None Seen); WBC,URINE 51-100 /HPF (0-5)
[2021-12-18] MEDS: LEVOTHYROXINE SODIUM 50 MCG TABLET PO SCH (06:03)
[2021-12-18] MEDS: DOCUSATE SODIUM 250 MG CAPSULE PO SCH ×2 (09:00→21:03)
[2021-12-18 09:01] VITALS: BP 122/73
[2021-12-18] MEDS: FLUoxetine HCL 20 MG CAPSULE PO SCH (09:09)
[2021-12-18] MEDS: ETHYL ALCOHOL 62% ANTISEPTIC NASAL SANITIZER 0.6 ML AMPUL NASAL SCH ×2 (09:09→20:49)
[2021-12-18] MEDS: ASPIRIN 81 MG CHEWABLE TABLET PO SCH (09:09)
[2021-12-18] MEDS: MULTIVITAMINS WITH MINERALS, THERAPEUTIC TABLET PO SCH (09:09)
[2021-12-18] MEDS: TAMSULOSIN HCL 0.4 MG CAPSULE PO SCH ×2 (09:09→20:50)
[2021-12-18] MEDS: THIAMINE 100 MG TABLET PO SCH (09:10)
[2021-12-18] MEDS: AmLODIPine BESYLATE 2.5 MG TABLET PO SCH (09:10)
[2021-12-18] MEDS: FOLIC ACID 1 MG TABLET PO SCH (09:10)
[2021-12-18] MEDS: METOPROLOL TARTRATE 50 MG TABLET PO SCH ×2 (09:10→20:50)
[2021-12-18] MEDS: BACLOFEN 10 MG TABLET PO SCH ×3 (09:10→20:51)
[2021-12-18] MEDS: APIXABAN 5 MG TABLET PO SCH ×2 (09:10→20:51)
[2021-12-18] MEDS: ACETAMINOPHEN 325 MG TABLET PO PRN (10:28)
[2021-12-18 11:37] LABS: BASOPHILS % (AUTO) 0.7 % (0.0-2.0); EOSINOPHILS % (AUTO) 5.5 % (1.0-6.0); HEMATOCRIT 29.8 % (36-46); HEMOGLOBIN 10.1 g/dL (12.0-16.0); LYMPHOCYTES # (AUTO) 1.7 K/uL (1.0-4.8); LYMPHOCYTES % (AUTO) 23.7 % (22.0-44.0); MEAN CORPUSCULAR HEMOGLOBIN 33.4 pg (26.0-34.0); MEAN CORPUSCULAR VOLUME 98 fL (80-100); MONOCYTES # (AUTO) 0.7 K/uL (0.1-1.0); MONOCYTES % (AUTO) 10.4 % (2.0-9.0); NEUTROPHILS # (AUTO) 4.3 K/uL (1.8-7.7); NEUTROPHILS % (AUTO) 59.7 % (40.0-70.0); PLATELET COUNT (AUTO) 291 K/uL (150-450); RED BLOOD CELL COUNT(AUTO) 3.03 MIL/uL (4.00-5.20); RED CELL DISTRIBUTION WIDTH 13.4 % (11.5-14.5)
[2021-12-18 11:45] LABS: CALCIUM, TOTAL 8.4 mg/dL (8.8-10.5); CREATININE 1.11 mg/dL (0.60-1.30); POTASSIUM 4.1 mmol/L (3.5-5.1)
[2021-12-18 16:30] VITALS: BP 128/64
[2021-12-18 20:45] VITALS: BP 132/76
[2021-12-18] MEDS: ATORVASTATIN CALCIUM 20 MG TABLET PO SCH (20:50)
[2021-12-18] MEDS: MIRTAZAPINE 15 MG TABLET PO SCH (20:50)
[2021-12-18] MEDS: SENNA 187 MG TABLET PO SCH (21:00)
[2021-12-18] MEDS: NITROFURANTOIN MONOHYD/M-CRYST 100 MG CAPSULE [MACROBID] PO SCH (21:16)
[2021-12-18 23:30] VITALS: BP 98/61
[2021-12-19] MEDS: LEVOTHYROXINE SODIUM 50 MCG TABLET PO SCH (05:59)
[2021-12-19] MEDS: ETHYL ALCOHOL 62% ANTISEPTIC NASAL SANITIZER 0.6 ML AMPUL NASAL SCH ×2 (09:04→20:55)
[2021-12-19] MEDS: FOLIC ACID 1 MG TABLET PO SCH (09:05)
[2021-12-19] MEDS: METOPROLOL TARTRATE 50 MG TABLET PO SCH ×2 (09:05→20:56)
[2021-12-19] MEDS: ASPIRIN 81 MG CHEWABLE TABLET PO SCH (09:06)
[2021-12-19] MEDS: FLUoxetine HCL 20 MG CAPSULE PO SCH (09:06)
[2021-12-19] MEDS: APIXABAN 5 MG TABLET PO SCH ×2 (09:06→20:56)
[2021-12-19] MEDS: MULTIVITAMINS WITH MINERALS, THERAPEUTIC TABLET PO SCH (09:06)
[2021-12-19] MEDS: THIAMINE 100 MG TABLET PO SCH (09:06)
[2021-12-19] MEDS: BACLOFEN 10 MG TABLET PO SCH ×3 (09:06→20:56)
[2021-12-19] MEDS: AmLODIPine BESYLATE 2.5 MG TABLET PO SCH (09:06)
[2021-12-19] MEDS: TAMSULOSIN HCL 0.4 MG CAPSULE PO SCH ×2 (09:06→20:55)
[2021-12-19] MEDS: NITROFURANTOIN MONOHYD/M-CRYST 100 MG CAPSULE [MACROBID] PO SCH ×2 (09:06→20:56)
[2021-12-19] MEDS: DOCUSATE SODIUM 250 MG CAPSULE PO SCH ×2 (09:07→21:00)
[2021-12-19 09:35] VITALS: BP 125/83
[2021-12-19] MEDS: ACETAMINOPHEN 325 MG TABLET PO PRN (09:53)
[2021-12-19 12:26] LABS: C-REACTIVE PROTEIN QUANT 1.6 mg/dL (0.00-0.30)
[2021-12-19] MEDS: DICLOFENAC SODIUM 1% 100 GM GEL [4GM] TP SCH ×2 (15:54→20:57)
[2021-12-19 16:30] VITALS: BP 122/69
[2021-12-19 20:53] VITALS: BP 127/63
[2021-12-19] MEDS: ATORVASTATIN CALCIUM 20 MG TABLET PO SCH (20:55)
[2021-12-19] MEDS: MIRTAZAPINE 15 MG TABLET PO SCH (20:56)
[2021-12-19] MEDS: SENNA 187 MG TABLET PO SCH (20:57)
[2021-12-20 02:10] VITALS: BP 128/67
[2021-12-20] MEDS: LEVOTHYROXINE SODIUM 50 MCG TABLET PO SCH (06:08)
[2021-12-20 09:10] VITALS: BP 126/86
[2021-12-20] MEDS: ETHYL ALCOHOL 62% ANTISEPTIC NASAL SANITIZER 0.6 ML AMPUL NASAL SCH ×2 (09:14→21:30)
[2021-12-20] MEDS: ASPIRIN 81 MG CHEWABLE TABLET PO SCH (09:15)
[2021-12-20] MEDS: FLUoxetine HCL 20 MG CAPSULE PO SCH (09:15)
[2021-12-20] MEDS: NITROFURANTOIN MONOHYD/M-CRYST 100 MG CAPSULE [MACROBID] PO SCH ×2 (09:15→21:31)
[2021-12-20] MEDS: BACLOFEN 10 MG TABLET PO SCH ×3 (09:16→21:32)
[2021-12-20] MEDS: DOCUSATE SODIUM 250 MG CAPSULE PO SCH ×2 (09:16→21:32)
[2021-12-20] MEDS: TAMSULOSIN HCL 0.4 MG CAPSULE PO SCH ×2 (09:16→21:31)
[2021-12-20] MEDS: MULTIVITAMINS WITH MINERALS, THERAPEUTIC TABLET PO SCH (09:16)
[2021-12-20] MEDS: THIAMINE 100 MG TABLET PO SCH (09:16)
[2021-12-20] MEDS: ACETAMINOPHEN 325 MG TABLET PO PRN ×2 (09:16→14:00)
[2021-12-20] MEDS: APIXABAN 5 MG TABLET PO SCH ×2 (09:16→21:31)
[2021-12-20] MEDS: DICLOFENAC SODIUM 1% 100 GM GEL [4GM] TP SCH ×3 (09:17→21:32)
[2021-12-20] MEDS: FOLIC ACID 1 MG TABLET PO SCH (09:17)
[2021-12-20] MEDS: METOPROLOL TARTRATE 50 MG TABLET PO SCH ×2 (09:43→21:31)
[2021-12-20] MEDS: AmLODIPine BESYLATE 2.5 MG TABLET PO SCH (09:43)
[2021-12-20] MEDS: COLCHICINE 0.6 MG TABLET PO SCH (11:44)
[2021-12-20] MEDS: ALLOPURINOL 100 MG TABLET PO SCH (12:38)
[2021-12-20 16:48] VITALS: BP 117/64
[2021-12-20 21:20] VITALS: BP 109/59
[2021-12-20] MEDS: MIRTAZAPINE 15 MG TABLET PO SCH (21:31)
[2021-12-20] MEDS: ATORVASTATIN CALCIUM 20 MG TABLET PO SCH (21:31)
[2021-12-20] MEDS: SENNA 187 MG TABLET PO SCH (21:31)
[2021-12-21 01:19] VITALS: BP 129/63
[2021-12-21] MEDS: LEVOTHYROXINE SODIUM 50 MCG TABLET PO SCH (06:24)
[2021-12-21] MEDS: NITROFURANTOIN MONOHYD/M-CRYST 100 MG CAPSULE [MACROBID] PO SCH ×2 (08:27→20:39)
[2021-12-21] MEDS: DICLOFENAC SODIUM 1% 100 GM GEL [4GM] TP SCH ×3 (08:27→20:40)
[2021-12-21] MEDS: APIXABAN 5 MG TABLET PO SCH ×2 (08:28→20:39)
[2021-12-21] MEDS: AmLODIPine BESYLATE 2.5 MG TABLET PO SCH (08:28)
[2021-12-21] MEDS: ASPIRIN 81 MG CHEWABLE TABLET PO SCH (08:28)
[2021-12-21] MEDS: METOPROLOL TARTRATE 50 MG TABLET PO SCH ×2 (08:28→20:39)
[2021-12-21] MEDS: TAMSULOSIN HCL 0.4 MG CAPSULE PO SCH ×2 (08:28→20:39)
[2021-12-21] MEDS: ETHYL ALCOHOL 62% ANTISEPTIC NASAL SANITIZER 0.6 ML AMPUL NASAL SCH ×2 (08:28→20:38)
[2021-12-21] MEDS: ALLOPURINOL 100 MG TABLET PO SCH (08:28)
[2021-12-21] MEDS: COLCHICINE 0.6 MG TABLET PO SCH (08:29)
[2021-12-21] MEDS: FLUoxetine HCL 20 MG CAPSULE PO SCH (08:29)
[2021-12-21] MEDS: THIAMINE 100 MG TABLET PO SCH (08:29)
[2021-12-21] MEDS: BACLOFEN 10 MG TABLET PO SCH ×3 (08:29→20:39)
[2021-12-21] MEDS: MULTIVITAMINS WITH MINERALS, THERAPEUTIC TABLET PO SCH (08:29)
[2021-12-21] MEDS: DOCUSATE SODIUM 250 MG CAPSULE PO SCH ×2 (08:29→20:39)
[2021-12-21] MEDS: FOLIC ACID 1 MG TABLET PO SCH (08:29)
[2021-12-21 09:02] VITALS: BP 104/53
[2021-12-21] MEDS: ACETAMINOPHEN 325 MG TABLET PO PRN (10:46)
[2021-12-21 16:15] VITALS: BP 124/61
[2021-12-21 20:28] VITALS: BP 127/60
[2021-12-21] MEDS: MIRTAZAPINE 15 MG TABLET PO SCH (20:39)
[2021-12-21] MEDS: ATORVASTATIN CALCIUM 20 MG TABLET PO SCH (20:39)
[2021-12-21] MEDS: SENNA 187 MG TABLET PO SCH (20:40)
[2021-12-21 23:50] VITALS: BP 105/54
[2021-12-22] MEDS: LEVOTHYROXINE SODIUM 50 MCG TABLET PO SCH (06:04)
[2021-12-22 08:30] VITALS: BP 116/76
[2021-12-22] MEDS: COLCHICINE 0.6 MG TABLET PO SCH (08:39)
[2021-12-22] MEDS: ETHYL ALCOHOL 62% ANTISEPTIC NASAL SANITIZER 0.6 ML AMPUL NASAL SCH ×2 (08:40→20:59)
[2021-12-22] MEDS: ASPIRIN 81 MG CHEWABLE TABLET PO SCH (08:40)
[2021-12-22] MEDS: TAMSULOSIN HCL 0.4 MG CAPSULE PO SCH ×2 (08:41→21:00)
[2021-12-22] MEDS: BACLOFEN 10 MG TABLET PO SCH ×3 (08:41→21:00)
[2021-12-22] MEDS: APIXABAN 5 MG TABLET PO SCH ×2 (08:41→21:00)
[2021-12-22] MEDS: FOLIC ACID 1 MG TABLET PO SCH (08:41)
[2021-12-22] MEDS: DOCUSATE SODIUM 250 MG CAPSULE PO SCH ×2 (08:41→20:59)
[2021-12-22] MEDS: NITROFURANTOIN MONOHYD/M-CRYST 100 MG CAPSULE [MACROBID] PO SCH ×2 (08:42→21:00)
[2021-12-22] MEDS: METOPROLOL TARTRATE 50 MG TABLET PO SCH ×2 (08:42→21:00)
[2021-12-22] MEDS: AmLODIPine BESYLATE 2.5 MG TABLET PO SCH (08:42)
[2021-12-22] MEDS: FLUoxetine HCL 20 MG CAPSULE PO SCH (08:43)
[2021-12-22] MEDS: THIAMINE 100 MG TABLET PO SCH (08:43)
[2021-12-22] MEDS: MULTIVITAMINS WITH MINERALS, THERAPEUTIC TABLET PO SCH (08:43)
[2021-12-22] MEDS: DICLOFENAC SODIUM 1% 100 GM GEL [4GM] TP SCH ×3 (08:44→20:59)
[2021-12-22] MEDS: ALLOPURINOL 100 MG TABLET PO SCH (08:44)
[2021-12-22] MEDS: ACETAMINOPHEN 325 MG TABLET PO PRN (09:58)
[2021-12-22 16:30] VITALS: BP 108/63
[2021-12-22 20:56] VITALS: BP 97/60
[2021-12-22] MEDS: MIRTAZAPINE 15 MG TABLET PO SCH (20:59)
[2021-12-22] MEDS: ATORVASTATIN CALCIUM 20 MG TABLET PO SCH (21:00)
[2021-12-22] MEDS: SENNA 187 MG TABLET PO SCH (21:00)
[2021-12-22 23:31] VITALS: BP 106/69
[2021-12-23] MEDS: LEVOTHYROXINE SODIUM 50 MCG TABLET PO SCH (05:40)
[2021-12-23 06:28] LABS: BASOPHILS % (AUTO) 1.1 % (0.0-2.0); HEMATOCRIT 30.4 % (36-46); HEMOGLOBIN 10.3 g/dL (12.0-16.0); LYMPHOCYTES # (AUTO) 2.1 K/uL (1.0-4.8); LYMPHOCYTES % (AUTO) 27.7 % (22.0-44.0); MEAN CORPUSCULAR HEMOGLOBIN 33.3 pg (26.0-34.0); MEAN CORPUSCULAR HGB CONC 33.9 G/dL (31.0-37.0); MEAN CORPUSCULAR VOLUME 98 fL (80-100); MONOCYTES # (AUTO) 0.6 K/uL (0.1-1.0); MONOCYTES % (AUTO) 7.3 % (2.0-9.0); NEUTROPHILS # (AUTO) 4.3 K/uL (1.8-7.7); NEUTROPHILS % (AUTO) 56.9 % (40.0-70.0); PLATELET COUNT (AUTO) 338 K/uL (150-450); RED BLOOD CELL COUNT(AUTO) 3.09 MIL/uL (4.00-5.20); RED CELL DISTRIBUTION WIDTH 13.5 % (11.5-14.5)
[2021-12-23 06:45] LABS: ALBUMIN 2.9 g/dL (3.4-5.0); BILIRUBIN,TOTAL 0.2 mg/dL (0.1-1.0); C-REACTIVE PROTEIN QUANT 1.29 mg/dL (0.00-0.30); CALCIUM, TOTAL 8.8 mg/dL (8.8-10.5); CREATININE 1.06 mg/dL (0.60-1.30); POTASSIUM 4.6 mmol/L (3.5-5.1); TOTAL PROTEIN, SERUM 7.1 g/dL (6.4-8.2)
[2021-12-23 07:00] LABS: URIC ACID 6.3 mg/dL (2.6-7.2)
[2021-12-23 07:41] VITALS: BP 128/85
[2021-12-23] MEDS: BACLOFEN 10 MG TABLET PO SCH ×3 (09:09→20:40)
[2021-12-23] MEDS: ETHYL ALCOHOL 62% ANTISEPTIC NASAL SANITIZER 0.6 ML AMPUL NASAL SCH ×2 (09:09→20:40)
[2021-12-23] MEDS: TAMSULOSIN HCL 0.4 MG CAPSULE PO SCH ×2 (09:09→20:40)
[2021-12-23] MEDS: FOLIC ACID 1 MG TABLET PO SCH (09:09)
[2021-12-23] MEDS: THIAMINE 100 MG TABLET PO SCH (09:09)
[2021-12-23] MEDS: DOCUSATE SODIUM 250 MG CAPSULE PO SCH ×2 (09:09→20:46)
[2021-12-23] MEDS: AmLODIPine BESYLATE 2.5 MG TABLET PO SCH (09:10)
[2021-12-23] MEDS: APIXABAN 5 MG TABLET PO SCH ×2 (09:10→20:40)
[2021-12-23] MEDS: NITROFURANTOIN MONOHYD/M-CRYST 100 MG CAPSULE [MACROBID] PO SCH ×2 (09:10→20:40)
[2021-12-23] MEDS: ASPIRIN 81 MG CHEWABLE TABLET PO SCH (09:10)
[2021-12-23] MEDS: FLUoxetine HCL 20 MG CAPSULE PO SCH (09:10)
[2021-12-23] MEDS: DICLOFENAC SODIUM 1% 100 GM GEL [4GM] TP SCH ×3 (09:11→20:40)
[2021-12-23] MEDS: ALLOPURINOL 100 MG TABLET PO SCH (09:11)
[2021-12-23] MEDS: METOPROLOL TARTRATE 50 MG TABLET PO SCH ×2 (09:11→20:46)
[2021-12-23] MEDS: MULTIVITAMINS WITH MINERALS, THERAPEUTIC TABLET PO SCH (09:13)
[2021-12-23] MEDS: ACETAMINOPHEN 325 MG TABLET PO PRN (09:32)
[2021-12-23 16:30] VITALS: BP 126/68
[2021-12-23 20:38] VITALS: BP 128/64
[2021-12-23] MEDS: ATORVASTATIN CALCIUM 20 MG TABLET PO SCH (20:41)
[2021-12-23] MEDS: MIRTAZAPINE 15 MG TABLET PO SCH (20:41)
[2021-12-23] MEDS: SENNA 187 MG TABLET PO SCH (20:46)
[2021-12-23 23:35] VITALS: BP 99/61
[2021-12-24] MEDS: LEVOTHYROXINE SODIUM 50 MCG TABLET PO SCH (06:01)
[2021-12-24] MEDS: ETHYL ALCOHOL 62% ANTISEPTIC NASAL SANITIZER 0.6 ML AMPUL NASAL SCH ×2 (09:21→20:18)
[2021-12-24] MEDS: ASPIRIN 81 MG CHEWABLE TABLET PO SCH (09:22)
[2021-12-24] MEDS: TAMSULOSIN HCL 0.4 MG CAPSULE PO SCH ×2 (09:22→20:17)
[2021-12-24] MEDS: BACLOFEN 10 MG TABLET PO SCH ×3 (09:22→20:17)
[2021-12-24] MEDS: NITROFURANTOIN MONOHYD/M-CRYST 100 MG CAPSULE [MACROBID] PO SCH ×2 (09:23→20:17)
[2021-12-24] MEDS: METOPROLOL TARTRATE 50 MG TABLET PO SCH ×2 (09:23→20:17)
[2021-12-24] MEDS: ALLOPURINOL 100 MG TABLET PO SCH (09:23)
[2021-12-24] MEDS: AmLODIPine BESYLATE 2.5 MG TABLET PO SCH (09:23)
[2021-12-24] MEDS: APIXABAN 5 MG TABLET PO SCH ×2 (09:23→20:17)
[2021-12-24] MEDS: FLUoxetine HCL 20 MG CAPSULE PO SCH (09:23)
[2021-12-24] MEDS: DOCUSATE SODIUM 250 MG CAPSULE PO SCH ×2 (09:23→20:17)
[2021-12-24] MEDS: MULTIVITAMINS WITH MINERALS, THERAPEUTIC TABLET PO SCH (09:24)
[2021-12-24] MEDS: FOLIC ACID 1 MG TABLET PO SCH (09:24)
[2021-12-24] MEDS: THIAMINE 100 MG TABLET PO SCH (09:24)
[2021-12-24] MEDS: DICLOFENAC SODIUM 1% 100 GM GEL [4GM] TP SCH ×3 (09:24→20:16)
[2021-12-24 10:03] VITALS: BP 114/68
[2021-12-24] MEDS: ACETAMINOPHEN 325 MG TABLET PO PRN (12:22)
[2021-12-24 16:05] VITALS: BP 106/69
[2021-12-24 20:15] VITALS: BP 109/62
[2021-12-24] MEDS: ATORVASTATIN CALCIUM 20 MG TABLET PO SCH (20:17)
[2021-12-24] MEDS: MIRTAZAPINE 15 MG TABLET PO SCH (20:17)
[2021-12-24] MEDS: SENNA 187 MG TABLET PO SCH (20:18)
[2021-12-24 23:58] VITALS: BP 102/54
[2021-12-25] MEDS: LEVOTHYROXINE SODIUM 50 MCG TABLET PO SCH (05:38)
[2021-12-25] MEDS: NITROFURANTOIN MONOHYD/M-CRYST 100 MG CAPSULE [MACROBID] PO SCH ×2 (08:33→20:29)
[2021-12-25] MEDS: METOPROLOL TARTRATE 50 MG TABLET PO SCH ×2 (08:33→20:29)
[2021-12-25] MEDS: THIAMINE 100 MG TABLET PO SCH (08:33)
[2021-12-25] MEDS: FOLIC ACID 1 MG TABLET PO SCH (08:34)
[2021-12-25] MEDS: DOCUSATE SODIUM 250 MG CAPSULE PO SCH ×2 (08:34→20:29)
[2021-12-25] MEDS: ALLOPURINOL 100 MG TABLET PO SCH (08:34)
[2021-12-25] MEDS: MULTIVITAMINS WITH MINERALS, THERAPEUTIC TABLET PO SCH (08:34)
[2021-12-25] MEDS: FLUoxetine HCL 20 MG CAPSULE PO SCH (08:34)
[2021-12-25] MEDS: ASPIRIN 81 MG CHEWABLE TABLET PO SCH (08:34)
[2021-12-25] MEDS: APIXABAN 5 MG TABLET PO SCH ×2 (08:34→20:29)
[2021-12-25] MEDS: TAMSULOSIN HCL 0.4 MG CAPSULE PO SCH ×2 (08:34→20:29)
[2021-12-25] MEDS: BACLOFEN 10 MG TABLET PO SCH ×3 (08:35→20:29)
[2021-12-25] MEDS: ETHYL ALCOHOL 62% ANTISEPTIC NASAL SANITIZER 0.6 ML AMPUL NASAL SCH ×2 (08:35→20:28)
[2021-12-25] MEDS: DICLOFENAC SODIUM 1% 100 GM GEL [4GM] TP SCH ×3 (08:35→20:29)
[2021-12-25] MEDS: AmLODIPine BESYLATE 2.5 MG TABLET PO SCH (08:35)
[2021-12-25 08:41] VITALS: BP 123/71
[2021-12-25 16:05] VITALS: BP 102/58
[2021-12-25 19:52] VITALS: BP 130/56
[2021-12-25] MEDS: ATORVASTATIN CALCIUM 20 MG TABLET PO SCH (20:28)
[2021-12-25] MEDS: MIRTAZAPINE 15 MG TABLET PO SCH (20:29)
[2021-12-25] MEDS: SENNA 187 MG TABLET PO SCH (20:30)
[2021-12-26 01:00] VITALS: BP 118/82
[2021-12-26] MEDS: LEVOTHYROXINE SODIUM 50 MCG TABLET PO SCH (06:07)
[2021-12-26 08:00] VITALS: BP 144/85
[2021-12-26] MEDS: DOCUSATE SODIUM 250 MG CAPSULE PO SCH ×2 (09:00→21:12)
[2021-12-26] MEDS: ETHYL ALCOHOL 62% ANTISEPTIC NASAL SANITIZER 0.6 ML AMPUL NASAL SCH ×2 (09:35→21:12)
[2021-12-26] MEDS: ASPIRIN 81 MG CHEWABLE TABLET PO SCH (09:35)
[2021-12-26] MEDS: TAMSULOSIN HCL 0.4 MG CAPSULE PO SCH ×2 (09:36→21:11)
[2021-12-26] MEDS: FOLIC ACID 1 MG TABLET PO SCH (09:36)
[2021-12-26] MEDS: APIXABAN 5 MG TABLET PO SCH ×2 (09:36→21:12)
[2021-12-26] MEDS: BACLOFEN 10 MG TABLET PO SCH ×3 (09:36→21:12)
[2021-12-26] MEDS: DICLOFENAC SODIUM 1% 100 GM GEL [4GM] TP SCH ×3 (09:37→21:13)
[2021-12-26] MEDS: AmLODIPine BESYLATE 2.5 MG TABLET PO SCH (09:37)
[2021-12-26] MEDS: MULTIVITAMINS WITH MINERALS, THERAPEUTIC TABLET PO SCH (09:37)
[2021-12-26] MEDS: ACETAMINOPHEN 325 MG TABLET PO PRN (09:37)
[2021-12-26] MEDS: FLUoxetine HCL 20 MG CAPSULE PO SCH (09:38)
[2021-12-26] MEDS: METOPROLOL TARTRATE 50 MG TABLET PO SCH ×2 (09:38→21:11)
[2021-12-26] MEDS: THIAMINE 100 MG TABLET PO SCH (09:38)
[2021-12-26] MEDS: ALLOPURINOL 100 MG TABLET PO SCH (09:38)
[2021-12-26 16:05] VITALS: BP 122/67
[2021-12-26] MEDS: SENNA 187 MG TABLET PO SCH (21:00)
[2021-12-26 21:10] VITALS: BP 128/67
[2021-12-26] MEDS: ATORVASTATIN CALCIUM 20 MG TABLET PO SCH (21:11)
[2021-12-26] MEDS: MIRTAZAPINE 15 MG TABLET PO SCH (21:11)
[2021-12-27 01:00] VITALS: BP 104/66
[2021-12-27] MEDS: LEVOTHYROXINE SODIUM 50 MCG TABLET PO SCH (05:50)
[2021-12-27] MEDS: ASPIRIN 81 MG CHEWABLE TABLET PO SCH (07:49)
[2021-12-27] MEDS: THIAMINE 100 MG TABLET PO SCH (07:49)
[2021-12-27] MEDS: APIXABAN 5 MG TABLET PO SCH ×2 (07:49→20:52)
[2021-12-27] MEDS: ETHYL ALCOHOL 62% ANTISEPTIC NASAL SANITIZER 0.6 ML AMPUL NASAL SCH ×2 (07:49→20:52)
[2021-12-27] MEDS: MULTIVITAMINS WITH MINERALS, THERAPEUTIC TABLET PO SCH (07:49)
[2021-12-27] MEDS: TAMSULOSIN HCL 0.4 MG CAPSULE PO SCH ×2 (07:49→20:52)
[2021-12-27] MEDS: FOLIC ACID 1 MG TABLET PO SCH (07:50)
[2021-12-27] MEDS: DOCUSATE SODIUM 250 MG CAPSULE PO SCH ×2 (07:50→20:52)
[2021-12-27] MEDS: FLUoxetine HCL 20 MG CAPSULE PO SCH (07:50)
[2021-12-27] MEDS: ALLOPURINOL 100 MG TABLET PO SCH (07:50)
[2021-12-27] MEDS: BACLOFEN 10 MG TABLET PO SCH ×3 (07:50→20:52)
[2021-12-27] MEDS: METOPROLOL TARTRATE 50 MG TABLET PO SCH ×2 (07:50→20:52)
[2021-12-27] MEDS: AmLODIPine BESYLATE 2.5 MG TABLET PO SCH (07:50)
[2021-12-27] MEDS: DICLOFENAC SODIUM 1% 100 GM GEL [4GM] TP SCH ×3 (07:51→21:05)
[2021-12-27 09:01] VITALS: BP 109/82
[2021-12-27 16:02] VITALS: BP 111/57
[2021-12-27] MEDS: MIRTAZAPINE 15 MG TABLET PO SCH (20:52)
[2021-12-27] MEDS: ATORVASTATIN CALCIUM 20 MG TABLET PO SCH (20:52)
[2021-12-27] MEDS: SENNA 187 MG TABLET PO SCH (20:52)
[2021-12-27 21:05] VITALS: BP 120/62
[2021-12-28 02:32] VITALS: BP 113/64
[2021-12-28] MEDS: LEVOTHYROXINE SODIUM 50 MCG TABLET PO SCH (06:14)
[2021-12-28] MEDS: ETHYL ALCOHOL 62% ANTISEPTIC NASAL SANITIZER 0.6 ML AMPUL NASAL SCH ×2 (08:29→20:31)
[2021-12-28] MEDS: DOCUSATE SODIUM 250 MG CAPSULE PO SCH ×2 (08:30→20:35)
[2021-12-28] MEDS: TAMSULOSIN HCL 0.4 MG CAPSULE PO SCH ×2 (08:30→20:31)
[2021-12-28] MEDS: MULTIVITAMINS WITH MINERALS, THERAPEUTIC TABLET PO SCH (08:30)
[2021-12-28] MEDS: FOLIC ACID 1 MG TABLET PO SCH (08:30)
[2021-12-28] MEDS: APIXABAN 5 MG TABLET PO SCH ×2 (08:30→20:31)
[2021-12-28] MEDS: ASPIRIN 81 MG CHEWABLE TABLET PO SCH (08:30)
[2021-12-28] MEDS: FLUoxetine HCL 20 MG CAPSULE PO SCH (08:31)
[2021-12-28] MEDS: ALLOPURINOL 100 MG TABLET PO SCH (08:31)
[2021-12-28] MEDS: BACLOFEN 10 MG TABLET PO SCH ×3 (08:31→20:31)
[2021-12-28] MEDS: AmLODIPine BESYLATE 2.5 MG TABLET PO SCH (08:31)
[2021-12-28] MEDS: THIAMINE 100 MG TABLET PO SCH (08:31)
[2021-12-28 08:32] VITALS: BP 141/76
[2021-12-28] MEDS: METOPROLOL TARTRATE 50 MG TABLET PO SCH ×2 (08:32→20:35)
[2021-12-28] MEDS: DICLOFENAC SODIUM 1% 100 GM GEL [4GM] TP SCH ×3 (08:32→20:32)
[2021-12-28] MEDS: ACETAMINOPHEN 325 MG TABLET PO PRN (08:32)
[2021-12-28 16:30] VITALS: BP 126/66
[2021-12-28 17:32] LABS: COVID AG,FIA SOURCE NASAL SWAB
[2021-12-28] MEDS: MIRTAZAPINE 15 MG TABLET PO SCH (20:31)
[2021-12-28] MEDS: SENNA 187 MG TABLET PO SCH (20:35)
[2021-12-28] MEDS: ATORVASTATIN CALCIUM 20 MG TABLET PO SCH (20:36)
[2021-12-29 00:35] VITALS: BP 100/65
[2021-12-29] MEDS: LEVOTHYROXINE SODIUM 50 MCG TABLET PO SCH (05:52)
[2021-12-29 07:31] LABS: BASOPHILS % (AUTO) 0.9 % (0.0-2.0); EOSINOPHILS % (AUTO) 8.6 % (1.0-6.0); HEMATOCRIT 29.3 % (36-46); HEMOGLOBIN 9.8 g/dL (12.0-16.0); LYMPHOCYTES # (AUTO) 1.7 K/uL (1.0-4.8); LYMPHOCYTES % (AUTO) 24.1 % (22.0-44.0); MEAN CORPUSCULAR HEMOGLOBIN 32.9 pg (26.0-34.0); MEAN CORPUSCULAR HGB CONC 33.5 G/dL (31.0-37.0); MEAN CORPUSCULAR VOLUME 98 fL (80-100); MONOCYTES # (AUTO) 0.7 K/uL (0.1-1.0); MONOCYTES % (AUTO) 9.9 % (2.0-9.0); NEUTROPHILS # (AUTO) 4.1 K/uL (1.8-7.7); NEUTROPHILS % (AUTO) 56.5 % (40.0-70.0); PLATELET COUNT (AUTO) 403 K/uL (150-450); RED BLOOD CELL COUNT(AUTO) 2.99 MIL/uL (4.00-5.20); RED CELL DISTRIBUTION WIDTH 13.8 % (11.5-14.5)
[2021-12-29 07:40] LABS: CALCIUM, TOTAL 8.5 mg/dL (8.8-10.5); CREATININE 0.93 mg/dL (0.60-1.30); POTASSIUM 4.5 mmol/L (3.5-5.1)
[2021-12-29] MEDS: ETHYL ALCOHOL 62% ANTISEPTIC NASAL SANITIZER 0.6 ML AMPUL NASAL SCH ×2 (08:51→20:42)
[2021-12-29] MEDS: THIAMINE 100 MG TABLET PO SCH (08:52)
[2021-12-29] MEDS: TAMSULOSIN HCL 0.4 MG CAPSULE PO SCH ×2 (08:52→20:43)
[2021-12-29] MEDS: MULTIVITAMINS WITH MINERALS, THERAPEUTIC TABLET PO SCH (08:52)
[2021-12-29] MEDS: ALLOPURINOL 100 MG TABLET PO SCH (08:52)
[2021-12-29] MEDS: FLUoxetine HCL 20 MG CAPSULE PO SCH (08:52)
[2021-12-29] MEDS: AmLODIPine BESYLATE 2.5 MG TABLET PO SCH (08:52)
[2021-12-29] MEDS: METOPROLOL TARTRATE 50 MG TABLET PO SCH ×2 (08:52→20:43)
[2021-12-29] MEDS: ACETAMINOPHEN 325 MG TABLET PO PRN (08:52)
[2021-12-29] MEDS: FOLIC ACID 1 MG TABLET PO SCH (08:53)
[2021-12-29] MEDS: ASPIRIN 81 MG CHEWABLE TABLET PO SCH (08:53)
[2021-12-29] MEDS: DOCUSATE SODIUM 250 MG CAPSULE PO SCH ×2 (08:53→20:43)
[2021-12-29] MEDS: DICLOFENAC SODIUM 1% 100 GM GEL [4GM] TP SCH ×3 (08:53→20:44)
[2021-12-29] MEDS: BACLOFEN 10 MG TABLET PO SCH ×3 (08:53→20:43)
[2021-12-29] MEDS: APIXABAN 5 MG TABLET PO SCH ×2 (08:53→20:42)
[2021-12-29 08:55] VITALS: BP 124/62
[2021-12-29 16:30] VITALS: BP 117/81
[2021-12-29] MEDS ORDERED: APIX5TAB PO (17:25)
[2021-12-29] MEDS ORDERED: ALLO-97 PO (17:25)
[2021-12-29] MEDS ORDERED: DOCU-350 PO (18:05)
[2021-12-29] MEDS ORDERED: SENN8.6T90 PO (18:05)
[2021-12-29] MEDS ORDERED: FOLI-130 PO (18:05)
[2021-12-29] MEDS ORDERED: TAMS-13 PO (18:05)
[2021-12-29] MEDS ORDERED: MULT-248 PO (18:05)
[2021-12-29] MEDS ORDERED: BACL10TA PO (18:05)
[2021-12-29] MEDS ORDERED: FLUO20CA36 PO (18:05)
[2021-12-29] MEDS ORDERED: ACET-2247 PO (18:05)
[2021-12-29] MEDS ORDERED: AMLO2.5T96 PO (18:05)
[2021-12-29] MEDS ORDERED: LEVO50 PO (18:05)
[2021-12-29] MEDS ORDERED: METO50 PO (18:05)
[2021-12-29] MEDS ORDERED: ASPI-1450 PO (18:05)
[2021-12-29] MEDS ORDERED: MIRT-89 PO (18:05)
[2021-12-29] MEDS ORDERED: THIA100T80 PO (18:05)
[2021-12-29] MEDS ORDERED: ATOR20TA86 PO (18:05)
[2021-12-29] MEDS: MIRTAZAPINE 15 MG TABLET PO SCH (20:42)
[2021-12-29] MEDS: SENNA 187 MG TABLET PO SCH (20:43)
[2021-12-29] MEDS: ATORVASTATIN CALCIUM 20 MG TABLET PO SCH (20:43)
[2021-12-29 21:00] VITALS: BP 113/68
[2021-12-30] MEDS: LEVOTHYROXINE SODIUM 50 MCG TABLET PO SCH (05:11)
[2021-12-30 05:33] VITALS: BP 115/57
[2021-12-30] MEDS: ETHYL ALCOHOL 62% ANTISEPTIC NASAL SANITIZER 0.6 ML AMPUL NASAL SCH (06:08)
[2021-12-30 07:00] VITALS: BP 149/87
[2021-12-30] MEDS: DOCUSATE SODIUM 250 MG CAPSULE PO SCH (07:10)
[2021-12-30] MEDS: ASPIRIN 81 MG CHEWABLE TABLET PO SCH (07:10)
[2021-12-30] MEDS: FOLIC ACID 1 MG TABLET PO SCH (07:11)
[2021-12-30] MEDS: BACLOFEN 10 MG TABLET PO SCH (07:11)
[2021-12-30] MEDS: APIXABAN 5 MG TABLET PO SCH (07:11)
[2021-12-30] MEDS: TAMSULOSIN HCL 0.4 MG CAPSULE PO SCH (07:11)
[2021-12-30] MEDS: AmLODIPine BESYLATE 2.5 MG TABLET PO SCH (07:12)
[2021-12-30] MEDS: THIAMINE 100 MG TABLET PO SCH (07:12)
[2021-12-30] MEDS: MULTIVITAMINS WITH MINERALS, THERAPEUTIC TABLET PO SCH (07:12)
[2021-12-30] MEDS: FLUoxetine HCL 20 MG CAPSULE PO SCH (07:12)
[2021-12-30] MEDS: METOPROLOL TARTRATE 50 MG TABLET PO SCH (07:12)
[2021-12-30] MEDS: ALLOPURINOL 100 MG TABLET PO SCH (07:12)
[2021-12-30] MEDS: DICLOFENAC SODIUM 1% 100 GM GEL [4GM] TP SCH (07:13)
== END 2021-12-30 08:05 | DRG 56 ==
LOC: 2WR 19:05
PROVIDERS: ADMIT Physical Medicine & Rehabilitation; ATTEND Physical Medicine & Rehabilitation
DX: I69.354 Hemiplegia and hemiparesis following cerebral infarction affecting left non-dominant side (principal); I63.511 Cerebral infarction due to unspecified occlusion or stenosis of right middle cerebral artery; E46 Unspecified protein-calorie malnutrition; I48.19 Other persistent atrial fibrillation; I62.9 Nontraumatic intracranial hemorrhage, unspecified; K59.2 Neurogenic bowel, not elsewhere classified; N39.0 Urinary tract infection, site not specified; I13.0 Hypertensive heart and chronic kidney disease with heart failure and stage 1 through stage 4 chronic kidney disease, or unspecified chronic kidney disease; F43.20 Adjustment disorder, unspecified; G31.84 Mild cognitive impairment of uncertain or unknown etiology; D64.9 Anemia, unspecified; E03.9 Hypothyroidism, unspecified; E78.5 Hyperlipidemia, unspecified; K59.00 Constipation, unspecified; M10.9 Gout, unspecified; Z96.641 Presence of right artificial hip joint; R13.10 Dysphagia, unspecified; N18.9 Chronic kidney disease, unspecified; Z20.822 Contact with and (suspected) exposure to COVID-19; I50.9 Heart failure, unspecified; R25.2 Cramp and spasm; N31.9 Neuromuscular dysfunction of bladder, unspecified; I69.322 Dysarthria following cerebral infarction; Z68.31 Body mass index [BMI] 31.0-31.9, adult; Z79.01 Long term (current) use of anticoagulants; Z79.899 Other long term (current) drug therapy; Z85.048 Personal history of other malignant neoplasm of rectum, rectosigmoid junction, and anus; Z98.41 Cataract extraction status, right eye; Z98.42 Cataract extraction status, left eye
CPT/HCPCS: 70450; 71045; 80048; 80053; 81001; 83880; 84550; 85025; 86140; 87081; 87086; 92507; 92523; 93005; 97110; 97112; 97116; 97163; 97167; 97530; 97535; 99366; J1644; 36415-L1; 36415-TC